=== PATIENT | female | born 1965 | race Caucasian/White ===

== ENCOUNTER 2019-03-11 07:08 | Emergency (ER) | payer OTHER ==
[2019-03-11] MEDS ORDERED: NA CHLORIDE 0.9% 1,000 ML ONE (07:37)
[2019-03-11] MEDS ORDERED: MEPERIDINE HCL 25 MG/0.5 ML ONE (07:37)
[2019-03-11] MEDS ORDERED: METOCLOPRAMIDE 10 MG/2mL INJ ONE (07:37)
--- NOTE | 2019-03-11 08:59 | RAD REPORT ---
EXAM DESCRIPTION: Maria Antonia oT (2 Views)03/11/2019 8:03 am CLINICAL HISTORY: Cough COMPARISON: 2017 FINDINGS: The lungs appear clear of acute infiltrate. The heart is normal size IMPRESSION: No acute abnormalities displayed
[2019-03-11] MEDS ORDERED: MORPHINE 4 MG/ML SYR ONE (09:26)
--- NOTE | 2019-03-11 09:28 | ER ---
Nurse's Notes [facility] Name: Anna Diamond Age: 53 yrs Sex: Female : 1965 Arrival Date: 03/11/2019 Time: 07:11 Bed 6 Private MD: Finesse Becerra Diagnosis: Acute upper respiratory infection, unspecified Presentation: 03/11 07:17 Presenting complaint: Patient states: got the flu on Saturday, has been taking Tamiflu iw since Saturday , ears hurt and jaw hurts and vomiting this morning, also back is hurting all over. Transition of care: patient was not received from another setting of care. Onset of symptoms was March 09, 2019. Risk Assessment: Do you want to hurt yourself or someone else? Patient reports no desire to harm self or others. Initial Sepsis Screen: Does the patient meet any 2 criteria? No. Patient's initial sepsis screen is negative. Does the patient have a suspected source of infection? No. Patient's initial sepsis screen is negative. Care prior to arrival:. 07:17 Method Of Arrival: Ambulatory iw 07:17 Acuity: ELLIS 3 iw RECEPTION INTERVIEWER: 07:20 LMP N/A - Hysterectomy iw Historical: - Allergies: 07:19 Levaquin; iw - PMHx: 07:19 Migraines; iw - PSHx: 07:19 Tonsillectomy; Hysterectomy; Cholecystectomy; iw - Immunization history:: Adult Immunizations. - Social history:: Smoking status: Patient denies any tobacco usage or history of. - Ebola Screening: : Patient negative for fever greater than or equal to 101.5 degrees Fahrenheit, and additional compatible Ebola Virus Disease symptoms Patient denies exposure to infectious person Patient denies travel to an Ebola-affected area in the 21 days before illness onset No symptoms or risks identified at this time. - Family history:: not pertinent. - Hospitalizations: : No recent hospitalization is reported. Screenin:27 Abuse screen: Denies threats or abuse. Denies injuries from another. Nutritional sv screening: No deficits noted. Tuberculosis screening: No symptoms or risk factors identified. Fall Risk None identified. Assessment: 07:45 General: Appears in no apparent distress. uncomfortable, slender, well developed, sv Behavior is cooperative, appropriate for age. Pain: Complains of pain in left cheek, left mandible and left ear Pain currently is 7 out of 10 on a pain scale. Pain began 2-3 days ago. Is continuous, Alleviated by nothing. Neuro: Level of Consciousness is awake, alert, obeys commands, Oriented to person, place, time, situation, Gait is steady, Speech is normal. Respiratory: Respiratory effort is even, unlabored, Respiratory pattern is regular, symmetrical. EENT: Reports pain in left ear and right ear. Derm: Skin is pink, warm \T\ dry. Musculoskeletal: Range of motion: intact in all extremities. 09:20 Reassessment: Patient appears in no apparent distress at this time. No changes from sv previously documented assessment. Patient and/or family updated on plan of care and expected duration. Pain level reassessed. Patient is alert, oriented x 3, equal unlabored respirations, skin warm/dry/pink. Reports her headache came back. 10:19 Reassessment: Dr Linton at the bedside speaking with the pt. sv 10:33 Reassessment: Patient appears in no apparent distress at this time. No changes from sv previously documented assessment. Patient and/or family updated on plan of care and expected duration. Pain level reassessed. Patient is alert, oriented x 3, equal unlabored respirations, skin warm/dry/pink. 10:54 Reassessment: Patient appears in no apparent distress at this time. No changes from sv previously documented assessment. Patient and/or family updated on plan of care and expected duration. Pain level reassessed. Patient is alert, oriented x 3, equal unlabored respirations, skin warm/dry/pink. Vital Signs: 07:20 BP 112 / 68; Pulse 83; Resp 16; Temp 100.0(TE); Pulse Ox 97% on R/A; Weight 61.23 kg; iw Height 5 ft. 4 in. (162.56 cm); Pain 7/10; 08:19 Pain 4/10; sv 08:20 BP 117 / 7; Pulse 77; Resp 16; Pulse Ox 99% ; sv 09:20 BP 115 / 71; Pulse 73; Resp 16; Pulse Ox 97% ; sv 10:19 BP 112 / 69; Pulse 79; Resp 16; Pulse Ox 100% ; sv 07:20 Body Mass Index 23.17 (61.23 kg, 162.56 cm) iw ED Course: 07:11 Patient arrived in ED. rg4 07:11 Finesse Becerra MD is Private Physician. rg4 07:19 Triage completed. iw 07:22 Shine Linton MD is Attending Physician. rn 07:26 Candelaria Adams RN is Primary Nurse. sv 07:27 Arm band placed on. sv 07:27 Patient has correct armband on for positive identification. Bed in low position. Call sv light in reach. Door closed. Head of bed elevated. 07:30 ED physician to see patient. sv 07:47 Inserted saline lock: 22 gauge in right hand, using aseptic technique. Blood collected. sv Flushed right hand with 5 ml normal saline. 08:03 XRAY Chest Pa And Lat (2 Views) In Process Unspecified. EDMS 08:10 Awaiting radiology results. sv 08:15 Throat Culture Sent. sv 10:54 No provider procedures requiring assistance completed. IV discontinued, intact, sv bleeding controlled, No redness/swelling at site. Pressure dressing applied. Administered Medications: 07:48 Drug: NS 0.9% 1000 ml Route: IV; Rate: 1000 ml; Site: right hand; sv 09:30 Follow up: Response: No adverse reaction; IV Status: Completed infusion; IV Intake: sv 1000ml 07:48 Drug: Demerol 25 mg {Note: rass2.} Route: IVP; Site: right hand; sv 08:19 Follow up: Pain 4/10 Adult; Response: No adverse reaction; RASS: Alert and Calm (0) sv 07:50 Drug: Reglan 10 mg Route: IVP; Site: right hand; sv 08:20 Follow up: Response: No adverse reaction sv 09:20 Drug: morphine 4 mg Route: IVP; Site: right hand; aa5 10:01 Follow up: Response: No adverse reaction; RASS: Alert and Calm (0); Pt reports that it sv helped for a little bit and now the headache is back. 10:33 Drug: Decadron - Dexamethasone 10 mg Route: IVP; Site: right hand; sv 10:53 Follow up: Response: No adverse reaction sv 10:52 Drug: [place] 10 mg-325 mg 1 tabs Route: PO; sv 10:54 Follow up: Response: Medication administered at discharge.; RASS: Alert and Calm (0) sv Intake: 09:30 IV: 1000ml; Total: 1000ml. sv Outcome: 09:26 Discharge ordered by . rn 10:54 Discharged to home ambulatory, with family. sv 10:54 Condition: stable 10:54 Discharge instructions given to patient, Instructed on discharge instructions, follow up and referral plans. no drinking with medication, no driving heavy equipment, medication usage, Demonstrated understanding of instructions, follow-up care, medications, Prescriptions given X 1. 10:55 Patient left the ED. sv Signatures: Dispatcher [employer] EDCandelaria Lord RN RN Xin March RN RN Shine Linton MD MD rn Calderon, Audri, RN RN [id number] Adelina Garcia rg4 Corrections: (The following items were deleted from the chart) 07:20 07:17 Acuity: ELLIS 4 [facility] 07:52 07:48 Demerol 25 mg IVP in right hand sv sv
--- NOTE | 2019-03-11 09:28 | EDPHYS ---
Physician Documentation [facility] Name: Anna Diamond Age: 53 yrs Sex: Female : 1965 Arrival Date: 03/11/2019 Time: 07:11 Bed 6 Private MD: Finesse Becerra ED Physician Shine Linton HPI: 03/11 07:32 This 53 yrs old Female presents to ER via Ambulatory with complaints of Flu rn Symptoms. 07:32 The patient or guardian reports cough. Onset: The symptoms/episode began/occurred 4 rn day(s) ago. Severity of symptoms: At their worst the symptoms were moderate, in the emergency department the symptoms are unchanged. Modifying factors: The symptoms are alleviated by nothing, the symptoms are aggravated by nothing. The patient has not experienced similar symptoms in the past. The patient has been recently seen by a physician:. Reports began with flu like symptoms on Saturday, had flu like symptoms, and friend of his had flu-like symptoms, so they were both treated for flu with tamiflu. She is on day 4 of tamiflu but now having shooting pain in ears, jaw pain, fatigue, headache, muscle aches. Reports cough and doesn't normally get cough with flu. Reports cough has improved and now dry. No hemoptysis. No travel to [place] recently. . STRIKER OUT: 07:20 LMP N/A - Hysterectomy iw Historical: - Allergies: 07:19 Levaquin; iw - PMHx: 07:19 Migraines; iw - PSHx: 07:19 Tonsillectomy; Hysterectomy; Cholecystectomy; iw - Immunization history:: Adult Immunizations. - Social history:: Smoking status: Patient denies any tobacco usage or history of. - Ebola Screening: : Patient negative for fever greater than or equal to 101.5 degrees Fahrenheit, and additional compatible Ebola Virus Disease symptoms Patient denies exposure to infectious person Patient denies travel to an Ebola-affected area in the 21 days before illness onset No symptoms or risks identified at this time. - Family history:: not pertinent. - Hospitalizations: : No recent hospitalization is reported. ROS: 07:32 Constitutional: + fever and chills Eyes: Negative for injury, pain, redness, and corporate attorney, ENT: + bilateral ear pain and jaw pain Neck: Negative for injury, pain, and swelling, Cardiovascular: Negative for chest pain, palpitations, and edema, Respiratory: + cough Abdomen/GI: Negative for abdominal pain, nausea, vomiting, diarrhea, and constipation, MS/Extremity: Negative for injury and deformity, Skin: Negative for injury, rash, and discoloration, Neuro: Negative for numbness, tingling, and seizure. Exam: 07:36 Constitutional: This is a well developed, well nourished patient who is awake, alert, rn laying in bed Head/Face: Normocephalic, atraumatic. Eyes: Pupils equal round and reactive to light, extra-ocular motions intact. Lids and lashes normal. Conjunctiva and sclera are non-icteric and not injected. Cornea within normal limits. Periorbital areas with no swelling, redness, or edema. ENT: MMM, no swelling or stridor Neck: Trachea midline, no thyromegaly or masses palpated, and no cervical lymphadenopathy. Supple, full range of motion without nuchal rigidity, or vertebral point tenderness. No Meningismus. Cardiovascular: Regular rate and rhythm. No pulse deficits. Respiratory: No increased work of breathing, no retractions or nasal flaring. Abdomen/GI: soft, non-tender Skin: Warm, dry MS/ Extremity: Pulses equal, no cyanosis Neuro: Awake and alert, GCS 15, oriented to person, place, time, and situation. Cranial nerves II-XII grossly intact. Motor strength 5/5 in all extremities. Sensory grossly intact. Vital Signs: 07:20 BP 112 / 68; Pulse 83; Resp 16; Temp 100.0(TE); Pulse Ox 97% on R/A; Weight 61.23 kg; iw Height 5 ft. 4 in. (162.56 cm); Pain 7/10; 08:19 Pain 4/10; sv 08:20 BP 117 / 7; Pulse 77; Resp 16; Pulse Ox 99% ; sv 09:20 BP 115 / 71; Pulse 73; Resp 16; Pulse Ox 97% ; sv 10:19 BP 112 / 69; Pulse 79; Resp 16; Pulse Ox 100% ; sv 07:20 Body Mass Index 23.17 (61.23 kg, 162.56 cm) iw MDM: 07:22 Patient medically screened. rn 09:24 Differential Diagnosis: Bronchitis Influenza Upper Respiratory Infection Sinusitis rn Viral Syndrome Pneumonia. Data reviewed: vital signs, nurses notes, lab test result(s), radiologic studies, plain films, and as a result, I will discharge patient. Counseling: I had a detailed discussion with the patient and/or guardian regarding: the historical points, exam findings, and any diagnostic results supporting the discharge/admit diagnosis, lab results, radiology results, the need for outpatient follow up, to return to the emergency department if symptoms worsen or persist or if there are any questions or concerns that arise at home. Response to treatment: the patient's symptoms have mildly improved after treatment, and as a result, I will discharge patient. Special discussion: I discussed with the patient/guardian in detail that at this point there is no indication for admission to the hospital. It is understood, however, that if the symptoms persist or worsen the patient needs to return immediately for re-evaluation. ED course: CXR neg for acute abnormality, no meningeal signs, pain improved with meds, but returned, most likely viral syndrome. Neg flu and strep. No urinary symptoms. Return precautions given and understood. . 03/11 07:36 Order name: Flu; Complete Time: 08:50 rn 03/11 07:38 Order name: Strep; Complete Time: 08:50 rn 03/11 07:32 Order name: XRAY Chest Pa And Lat (2 Views); Complete Time: 09:05 rn 03/11 08:14 Order name: Throat Culture EDNH 03/11 07:32 Order name: IV Start; Complete Time: 07:51 rn Administered Medications: 07:48 Drug: NS 0.9% 1000 ml Route: IV; Rate: 1000 ml; Site: right hand; sv 09:30 Follow up: Response: No adverse reaction; IV Status: Completed infusion; IV Intake: sv 1000ml 07:48 Drug: Demerol 25 mg {Note: rass2.} Route: IVP; Site: right hand; sv 08:19 Follow up: Pain 4/10 Adult; Response: No adverse reaction; RASS: Alert and Calm (0) sv 07:50 Drug: Reglan 10 mg Route: IVP; Site: right hand; sv 08:20 Follow up: Response: No adverse reaction sv 09:20 Drug: morphine 4 mg Route: IVP; Site: right hand; aa5 10:01 Follow up: Response: No adverse reaction; RASS: Alert and Calm (0); Pt reports that it sv helped for a little bit and now the headache is back. 10:33 Drug: Decadron - Dexamethasone 10 mg Route: IVP; Site: right hand; sv 10:53 Follow up: Response: No adverse reaction sv 10:52 Drug: [place] 10 mg-325 mg 1 tabs Route: PO; sv 10:54 Follow up: Response: Medication administered at discharge.; RASS: Alert and Calm (0) sv Disposition: 03/11/19 09:26 Discharged to Home. Impression: Acute upper respiratory infection, unspecified. - Condition is Stable. - Discharge Instructions: Upper Respiratory Infection, Adult, Viral Respiratory Infection. - Prescriptions for Tylenol- Codeine #3 300-30 mg Oral Tablet - take 2 tablets by ORAL route every 6 hours As needed; 20 tablet. - Medication Reconciliation Form, Thank You Letter, Antibiotic Education, Prescription Opioid Use form. - Follow up: Private Physician; When: As needed; Reason: Recheck today's complaints, Re-evaluation by your physician. - Problem is new. - Symptoms have improved. Signatures: Dispatcher [employer] EDCandelaria Lord RN RN sv Williams, Irene, RN RN iw Nieto, Roman, MD MD rn Calderon, Audri, RN RN aa5 Corrections: (The following items were deleted from the chart) 07:37 07:32 Constitutional: + fever and chills Eyes: Negative for injury, pain, redness, and corporate attorney, ENT: + bilateral ear pain and jaw pain Neck: Negative for injury, pain, and swelling, Cardiovascular: Negative for chest pain, palpitations, and edema, Respiratory: + cough Abdomen/GI: Negative for abdominal pain, nausea, vomiting, diarrhea, and constipation, MS/Extremity: Negative for injury and deformity, Skin: Negative for injury, rash, and discoloration, Neuro: Negative for headache, weakness, numbness, tingling, and seizure, rn 07:39 07:36 Constitutional: This is a well developed, well nourished patient who is awake, rn alert, laying in bed Head/Face: Normocephalic, atraumatic. Eyes: Pupils equal round and reactive to light, extra-ocular motions intact. Lids and lashes normal. Conjunctiva and sclera are non-icteric and not injected. Cornea within normal limits. Periorbital areas with no swelling, redness, or edema. ENT: MMM, no swelling or stridor rn 10:55 09:26 03/11/2019 09:26 Discharged to Home. Impression: Acute upper respiratory sv infection, unspecified. Condition is Stable. Forms are Medication Reconciliation Form, Thank You Letter, Antibiotic Education, Prescription Opioid Use. Follow up: Private Physician; When: As needed; Reason: Recheck today's complaints, Re-evaluation by your physician. Problem is new. Symptoms have improved. rn
[2019-03-11] MEDS ORDERED: HYDROCODONE/APAP 10/325 TAB ONE (10:32)
[2019-03-11] MEDS ORDERED: dexAMETHasone 10 MG/ML VIAL ONE (10:32)
[2019-03-11 19:00] VITALS: TEMP 100
[2019-03-11 19:07] VITALS: BP 112/69; O2SAT 100
== END 2019-03-11 10:55 | disposition home or self-care (01) ==
LOC: ER 07:08
DX: J06.9 Acute upper respiratory infection, unspecified (principal); Z88.1 Allergy status to other antibiotic agents
CPT/HCPCS: 96361; 87070; 87081; 87804 ×2; 71046; 96375; 96374; 99284; J2765; J1100; J2175; J7030

== ENCOUNTER 2022-10-18 12:53 | Emergency (ER) | payer OTHER ==
--- OUTSIDE RECORDS SUMMARY | 2022-10-18 12:55 | XMS REPORT | Continuity of Care Document ---
:1965 Author Organization [facility] t Address [address] [place] [address] [address] [place] [address] Care Team Providers Name Role Phone NADJA ORANTES Primary Care Physician Unavailable JANICE IRAHETA Attending Clinician Unavailable MILAN PEOPLES Attending Clinician Unavailable Bela BALTAZAR, Tsering Ornelas Attending Clinician Chirag BALTAZAR, Gretta Bates Attending Clinician [place] Attending Clinician DENISHA VERDIN Attending Clinician Unavailable Payers Payer Name Policy Type Policy Number Effective Date Expiration Date S kvng [employer] CHOICE POS [id number] 2009 00:00:00 II Problems Condition Condition Condition Status Onset Resolution Last Treating Co mments Source Name Details Category Date Date Treatment Clinician Date Vestibular Vestibular Disease Active M ethodi schwannoma schwannoma 10-14 [facility] 00:00: Hospita 00 l Contusion Contusion Disease Active [facility] of bone of bone 04-12 Health 00:00: 00 Sprain of Sprain of Disease Active 2020-02 UT calcaneofi calcaneofi 2 He alth bular bular 00:00: ligament ligament 00 of right of right ankle ankle Sprain of Sprain of Disease Active 2020-02 UT anterior anterior 03-21 Health talofibula talofibula 00:00: r ligament r ligament 00 of right of right ankle ankle Right Right Disease Active 2020-02 UT ankle pain ankle pain 03-19 He alth 00:00: 00 Moderate Moderate Disease Active 2020-02 Last [facility] right right 03-19 Assessmen Health ankle ankle 00:00: t & Plan: sprain sprain 00 Formattin g of this note might be different from the original. Placed in a tall boot, recommend four-poin t walker, crutches if she has some. May take ibuprofen /Tylenol. Recommend Rest, Ice, Compressi on, Elevation . Follow-up in 2 weeks as needed. Allergies, Adverse Reactions, Alerts Allergy Allergy Status Severity Reaction(s) Onset Inactive Treating Comm ents Source Name Type Date Date Clinician Tetracyc Propensi Active Rash Method i line ty to 09-19 st adverse 00:00: Hospita reaction 00 l s to drug TETRACYC DRUG Active Rash [facility] LINE INGREDI 06-16 ity of 00:00: [place] [id number] [facility] Tetracyc Allergy Active Rash Heart [facility] line to 06-16 burn Health substanc 00:00: e 00 Social History Social Habit Start Date Stop Date Quantity Comments Source History of tobacco Current smoker [facility] Alcohol Std Drinks History [facility] Alcohol Binge History [facility] Alcohol Comment Exposure to Not sure [facility] SARS-CoV-2 (event) Alcohol intake 2022-05-17 2022-05-17 Ex-drinker [facility] 00:00:00 00:00:00 (finding) Hospital History of Social 2022-05-17 2022-05-[address] function 00:00:00 00:00:00 Hospital Tobacco use and 2021-09-19 2021-09-19 Smokeless [facility] exposure 00:00:00 00:00:00 tobacco non-user Hospital History [facility] 2021-01-17 2021-01-17 1 [place] [facility] Alcohol Frequency 00:00:00 00:00:00 Sex [birth year] [facility] 00:00:00 00:00:00 Hospital Smoking Status Start Date Stop Date Source Ex-smoker 2021-09-19 00:00:00 2021-09-19 00:00:00 [facility] Never smoked tobacco [facility] Medications Ordered Filled Start Stop Current Ordering Indication Dosage Frequency Signature Comments Components Source Medication Medication Date Date Medication? Clinician (SIG) Name Name Jono Yes TAKE 1 Meth rigo n (ZOMIG) 5 7-[address] [facility] tablet 00:00: (5MG) BY Hosp serina 00 MOUTH l ONCE(ONSET OF HEADACHE) MAY REPEAT AFTER 2HRS MAX 10MG/24HRS NEEDED Vyvanse 50 Yes 50mg QD Take 50 mg M ethodi mg capsule 7-[address] 00:00: every Hospita 00 morning. l Trintellix Yes 20mg QD Take 20 mg M ethodi 20 mg 6-[address] tablet 00:00: daily. Hospita 00 l lisdexamfet 2020-02 Yes 1{capsu QD 1 capsule UT amine 1-30 le} 1 (one) [facility] ([facility]) 08:48: time each 30 MG 07 day. capsule Vortioxetin 2020-02 Yes QD 1 (one) [facility] e [facility] 1-30 time each Health (Trintellix 08:48: day. ) 10 MG 07 tablet tablet lisdexamfet 2020-02 Yes 1{capsu QD 1 capsule UT amine 1-30 le} 1 (one) [facility] ([facility]) 08:48: time each 30 MG 07 day. capsule Vortioxetin 2020- Yes QD 1 (one) [facility] e [facility] 1-30 time each Health (Trintellix 08:48: day. ) 10 MG 07 tablet tablet lisdexamfet 2020- Yes 1{capsu QD 1 capsule UT amine 1-30 le} 1 (one) [facility] ([facility]) 08:48: time each 30 MG 07 day. capsule Vortioxetin 2020- Yes QD 1 (one) [facility] e [facility] 1-30 time each Health (Trintellix 08:48: day. ) 10 MG 07 tablet tablet lisdexamfet 2020- Yes 1{capsu QD 1 capsule UT amine 1-30 le} 1 (one) [facility] ([facility]) 08:48: time each 30 MG 07 day. capsule Vortioxetin 2021-1 Yes QD 1 (one) [facility] e [facility] 1-30 time each Health (Trintellix 08:48: day. ) 10 MG 07 tablet tablet ergocalcife 2020-02 Yes UT rol 1-10 Health (Vitamin 00:00: D2) 1.25 MG 00 (87609 UT) capsule ergocalcife 2020-02 Yes UT rol 1-10 Health (Vitamin 00:00: D2) 1.25 MG 00 (67043 UT) capsule ergocalcife 2020-02 Yes UT rol 1-10 Health (Vitamin 00:00: D2) 1.25 MG 00 (11449 UT) capsule ergocalcife 2020-02 Yes UT rol 1-10 Health (Vitamin 00:00: D2) 1.25 MG 00 (23932 UT) capsule ZOLMitripta Yes Zomig 5 mg UT n (Zomig) 5 4-29 tablet 1 Heal th MG tablet 00:00: tablet as 00 needed by oral route. ZOLMitripta Yes Zomig 5 mg UT n (Zomig) 5 4-29 tablet 1 Heal th MG tablet 00:00: tablet as 00 needed by oral route. ZOLMitripta Yes Zomig 5 mg UT n (Zomig) 5 4-29 tablet 1 Heal th MG tablet 00:00: tablet as 00 needed by oral route. ZOLMitripta Yes Zomig 5 mg UT n (Zomig) 5 4-29 tablet 1 Heal th MG tablet 00:00: tablet as 00 needed by oral route. Vital Signs Vital Name Observation Time Observation Value Comments Source Body height 2022-05-17 19:50:00 162.6 cm [facility] Body weight 2022-05-17 19:50:00 57.6 kg [facility] BMI 2022-05-17 19:50:00 21.80 kg/m2 [facility] Procedures Procedure Date / Time Performed Performing Clinician Sourc e XR FINGER 2+ VW LEFT 2022-05-17 20:08:30 [facility] XR FINGER 2+ VW RIGHT 2022-05-17 20:08:23 [facility] Plan of Care Planned Activity Planned Date Details Comments Source Future Scheduled 2022-10-16 Screening [facility] Test 17:23:16 malignant neoplasm of colon (procedure) [code = 196380157] Future Scheduled 2022-10-16 [facility] Test 17:23:16 malignant neoplasm of colon (procedure) [code = 987171053] Future Scheduled 2022-10-16 [facility] Test 17:23:16 malignant neoplasm of colon (procedure) [code = 927129010] Future Scheduled 2022-10-16 COVID-19 VACCINE [facility] Test 17:23:16 (#1) [code = COVID-19 VACCINE (#1)] Future Scheduled 2022-10-16 Hepatitis C [facility] Test 17:23:16 screening (procedure) [code = 482572792] Future Scheduled 2022-10-16 [facility] Test 17:23:16 malignant neoplasm of cervix (procedure) [code = 545321042] Future Scheduled 2022-10-16 BREAST CANCER [facility] Test 17:23:16 SCREENING [code = BREAST CANCER SCREENING] Future Scheduled 2022-10-16 [facility] Test 17:23:16 malignant neoplasm of colon (procedure) [code = 535191023] Future Scheduled 2022-10-16 [facility] Test 17:23:16 malignant neoplasm of colon (procedure) [code = 154171574] Future Scheduled 2022-10-16 SHINGLES VACCINES [facility] Test 17:23:16 (1 of 2) [code = SHINGLES VACCINES (1 of 2)] Future Scheduled 2022-10-16 INFLUENZA VACCINE [facility] Test 17:23:16 (#1) [code = INFLUENZA VACCINE (#1)] Encounters Start End Encounter Admission Attending Care Care Encounter Source Date/Time Date/Time Type Type Clinicians Facility Department ID 2021-04-12 Outpatient [facility] [id number] [place] 13:36:43 [facility] 2021-03-[address] [facility] [id number] [place] 13:58:12 [facility] 2021-02-08 Outpatient [facility] [id number] [place] 12:23:37 [facility] 2021-01-18 Outpatient [facility] [id number] [place] 11:46:56 [facility] 2021-01-16 Outpatient [facility] [id number] [place] 15:15:39 [facility] 2021-01-16 Outpatient GITA [facility] [id number] [place] 09:30:09 [facility] 2021-01-16 Outpatient RAJIV, [facility] [id number] [place] 09:20:37 [facility] 2022-05-17 2022-05-17 Office Bela, 1.2.840.1 [id number] Methodi 15:00:00 17:04:09 Visit [place]ser[place] 40219.1.[address] [place] 3.430.2.7 Hospit a .3.936153 l .8 2022-05-17 2022-05-17 Outpatient BELA, [facility] [id number] [place] 00:00:00 00:00:00 TSERING 054 Method i 2022-05-17 2022-05-17 Outpatient BELA, [facility] [id number] [place] 00:00:00 00:00:00 TSERING 176 Method i 2022-05-17 2022-05-17 Outpatient BELA, [facility] [id number] [place] 00:00:00 00:00:00 TSERING 187 Method i 2022-05-16 2022-05-16 Travel 1.2.840.1 1.2.725.940 [id number] Methodi 00:00:00 00:00:[address] 3.430.2.7 0.2.7.3.698 Ho spita .3.613375 084.8 l .8 2022-04-09 2022-04-09 Travel 1.2.840.1 1.2.516.707 [id number] [facility] 00:00:00 00:00:[address] 3.430.2.7 0.2.7.3.698 Ho spita .3.300708 084.8 l .8 2021-11-23 2021-11-23 Office Chirag, 1.2.840.1 [id number] Methodi 16:00:00 17:07:26 Visit Gretta Bates 66129.1.1 350 s t 3.430.2.7 Hospit a .3.440065 l .8 2021-11-23 2021-11-23 Procedure 1.2.840.1 [id number] 2099 [id number] [facility] 14:00:00 16:59:[address] 3.430.2.7 Hospit a .3.937392 l .8 2021-11-23 2021-11-23 Procedure Arevalo, 1.2.840.1 [id number] 2099 [id number] [facility] 13:00:00 13:48:30 visit [place] [address]29.1.[address] 3.430.2.7 Hospit a .3.343262 l .8 2021-11-23 2021-11-23 Outpatient BOWIE, [facility] [id number] [place] [address] 00:00:00 00:00:00 SALIN[place] [address] 2021-11-23 2021-11-23 Outpatient [facility] [id number] [place] [address] 00:00:00 00:00:[address] 2021-11-23 2021-11-[address] 00:00:00 00:00:00 GRETTA Prieto [facility] 2021-11-23 2021-11-23 Travel 1.2.840.1 1.2.588.365 [id number] Methodi 00:00:00 00:00:[address] 3.430.2.7 0.2.7.3.698 Ho spita .3.368806 084.8 l .8 2021-10-31 2021-10-31 [facility], 1.2.840.1 [id number] Methodi 14:24:40 23:59:00 Encounter Gretta Bates 26507.1.[address] 3.430.2.7 Hospit a .3.976517 l .8 2021-10-31 2021-10-31 Outpatient VRABEC, [facility] [id number] [address] [place] [address] 00:00:00 00:00:00 GRETTA [address] 2021-10-31 2021-10-31 Orders Vrabec, 1.2.840.1 [id number] Methodi 00:00:00 00:00:00 Only Gretta العلي. 00486.1.1 91Chiara s t 3.430.2.7 Hospit a .3.981233 l .8 2021-10-13 2021-10-13 Outpatient VRABEC, [facility] [id number] [place] 00:00:00 00:00:00 GRETTA 774 Method i 2021-10-09 2021-10-09 Outpatient VRABEC, [facility] [id number] [place] 00:00:00 00:00:00 GRETTA 520 Method i 2021-09-19 2021-09-19 Outpatient [facility] [id number] [place] 00:00:00 00:00:00 229 Method i 2021-09-19 2021-09-19 Outpatient VRABEC, [facility] [id number] [place] 00:00:00 00:00:00 GRETTA 230 Method i 2021-04-12 2021-04-12 Office [facility] 1.2.840.114 [id number] [place] 13:00:00 13:30:47 Visit Janice [place] [facility].13.58 [facility] 9.2.7.2.686 [address] 4 [id number] [id number] 2021-03-27 2021-03-27 [facility] 1.2.840.114 [id number] [place] 13:30:00 13:58:[facility] 9.2.7.2.686 [address] [id number] [id number] 2021-03-01 2021-03-01 [facility] 1.2.840.114 [id number] [place] 11:00:00 12:17:52 Visit Janice [place] 350.1.13.58 [facility] 9.2.7.2.686 [address] 8 [id number] [id number] 2021-02-08 2021-02-08 Office BERRY Iraheta [facility] 1.2.840.114 [id number] [place] 11:30:00 12:30:26 [facility] 350.1.13.58 H [facility] 9.2.7.2.686 [address] 3 [id number] 2021-01-18 2021-01-18 Outpatient Frandy VERDIN [facility] [id number] 2Q-20 Univers 16:00:00 16:00:00 DENISHA [id number] [facility] Results This patient has no known results.
[2022-10-18] MEDS ORDERED: NA CHLORIDE 0.9% 1,000 ML ONE (14:21)
[2022-10-18] MEDS ORDERED: KETOROLAC 30 MG/ML INJ ONE (14:21)
[2022-10-18] MEDS ORDERED: ONDANSETRON 4 MG/2 ML VIAL ONE (14:21)
[2022-10-18 14:26] LABS: Absolute Lymphocytes (CBC) 1.1 K/uL (0.7-4.9); Hematocrit 38.1 % (36.0-45.0); Lymphocytes % 16.8 % (15.3-44.8); MCV 90.2 fL (80-100); MPV 7.1 fL (7.6-11.3); Platelets 227 thou/uL (152-406); RBC Red Blood Cell Count 4.22 M/uL (3.86-4.86)
[2022-10-18 14:52] LABS: Albumin 4.4 g/dL (3.4-5.0); Bilirubin Total 0.3 mg/dL (0.2-1.0); Potassium 3.4 mEq/L (3.5-5.1); Protein, Total 7.6 g/dL (6.4-8.2)
--- NOTE | 2022-10-18 16:51 | RAD REPORT ---
EXAM DESCRIPTION: CT - Abdomen Pelvis W Contrast - 10/18/2022 3:20 pm CLINICAL HISTORY: ABD PAIN COMPARISON: Abdomen Pelvis W Contrast dated 05/17/2016 TECHNIQUE: Thin cut axial CT imaging of the abdomen and pelvis was performed following intravenous a dministration of 100 mL Isovue 300. Multiplanar reformats were generated and reviewed. All CT scans are performed using dose optimization technique as appropriate and may include automated exposure control or mA/KV adjustment according to patient size. FINDINGS: No suspicious findings in the lung bases. The liver again shows innumerable small hypoattenuating well-circumscribed lesions, suggestive of cys ts, although they are not well characterized on this single-phase exam. The pattern however appear st able. Adrenal glands, spleen, and pancreas show no suspicious findings. Gallbladder was surgically re moved. No intra or extrahepatic biliary ductal dilation. Symmetric renal function is seen with no hydronephrosis or suspicious renal mass. No dilated bowel loops or bowel wall thickening. Appendix is unremarkable. Hbym-ex-moxummnf stool bur den along the proximal colon. No free air, free fluid or inflammatory stranding. No hernia, mass or b ulky lymphadenopathy. The urinary bladder is without significant finding. Status post hysterectomy. No suspicious bony findings. IMPRESSION: No acute intra-abdominal process. Wleu-yp-iahyrdir stool burden along the proximal colon. Stable innumerable hepatic hypoattenuating lesions as above.
--- NOTE | 2022-10-18 17:57 | EDPHYS ---
Physician Documentation [facility] Name: Anna Diamond Age: 57 yrs Sex: Female : 1965 Arrival Date: 10/18/2022 Time: 12:53 Bed 6 Private MD: ED Physician Michael Vargas HPI: 10/18 15:22 This 57 yrs old Female presents to ER via Ambulatory with complaints of ms3 Nausea/Vomiting/Diarrhea, Abdominal Pain. 15:22 57-year-old female with past medical history of migraines, colitis presents for ms3 vomiting, nausea, diarrhea, abdominal pain, chills for 1 week. Patient states his symptoms have become worse. Patient denies alleviating or inciting factors. Historical: - Allergies: 13:12 Levaquin; ap3 13:12 Tetracycline; ap3 - Home Meds: 13:12 Cipro Oral [Active]; metronidazole 250 mg Oral tablet [Active]; ap3 - PMHx: 13:12 Migraines; ap3 - Immunization history:: Client reports having NOT received the Covid vaccine. - Social history:: Smoking status: Patient denies any tobacco usage or history of. ROS: 15:22 Constitutional: Negative for fever, and chills. Neck: Negative for injury, pain, and ms3 swelling, Cardiovascular: Negative for chest pain, and palpitations. Respiratory: Negative for shortness of breath, cough, wheezing, and pleuritic chest pain. 15:22 MS/Extremity: Negative for injury and deformity, Skin: Negative for injury, rash, and discoloration. 15:22 Abdomen/GI: Positive for abdominal pain, nausea, vomiting, and diarrhea. 15:22 All other systems are negative. Exam: 15:22 Constitutional: This is a well developed, well nourished patient who is awake, alert, ms3 and in no acute distress. Head/Face: Normocephalic, atraumatic. ENT: Nares patent. No nasal discharge, no septal abnormalities noted. Tympanic membranes are normal and external auditory canals are clear. Oropharynx with no redness, swelling, or masses, exudates, or evidence of obstruction, uvula midline. Mucous membranes moist. Neck: Trachea midline, no cervical lymphadenopathy. Supple, full range of motion without nuchal rigidity, or vertebral point tenderness. No Meningismus. Chest/axilla: Normal chest wall appearance and motion. Nontender with no deformity. Cardiovascular: Regular rate and rhythm with a normal S1 and S2. No gallops, murmurs, or rubs. Normal PMI, no JVD. No pulse deficits. Respiratory: Lungs have equal breath sounds bilaterally, clear to auscultation and percussion. No rales, rhonchi or wheezes noted. No increased work of breathing, no retractions or nasal flaring. Abdomen/GI: Soft, non-tender, with normal bowel sounds. No distension or tympany. No guarding or rebound. No evidence of tenderness throughout. Skin: Warm, dry with normal turgor. Normal color with no rashes, no lesions, and no evidence of cellulitis. MS/ Extremity: Pulses equal, no cyanosis. Neurovascular intact. Full, normal range of motion. Vital Signs: 13:09 BP 130 / 85; Pulse 84; Resp 17; Temp 97.9; Pulse Ox 100% ; Weight 58.97 kg; Height 5 ap3 ft. 4 in. ; Pain 3/10; 13:09 Body Mass Index 22.31 (58.97 kg, 162.56 cm) ap3 13:09 Pain Scale: Adult ap3 MDM: 13:22 Patient medically screened. ms3 15:22 Differential diagnosis: Nonspecific abd pain, gastritis, pancreatitis, viral ms3 gastroenteritis, gastroenteritis. 21:43 Data reviewed: vital signs, nurses notes, lab test result(s), radiologic studies, CT ms3 scan. Consideration of Admission/Observation Escalation of care including admission/observation considered. Patient declines observation. I considered the following discharge prescriptions or medication management in the emergency department Medications were administered in the Emergency Department. See MAR. Historians other than the Patient: Spouse/Significant Other: Patient's . Counseling: I had a detailed discussion with the patient and/or guardian regarding the historical points, exam findings, and any diagnostic results supporting the discharge/admit diagnosis, lab results, radiology results, the need for outpatient follow up, to return to the emergency department if symptoms worsen or persist or if there are any questions or concerns that arise at home. Refusal of service: The patient/guardian displays adequate decision making capability and despite a detailed discussion of alternatives, benefits, risks, and consequences refuses:. Special discussion:. ED course: Discussed placing patient observation and patient declined. Discussed necessity for patient to follow-up with gastroenterology in 1 to 2 days. Patient understands and agrees with plan. All questions were answered. Return precautions discussed include fevers, chills, vomiting, inability to tolerate p.o., worsening pain, or any other concerns. On reevaluation patient is alert and oriented x4, in no apparent distress, nontoxic-appearing, ambulatory in the emergency department. 10/18 13:22 Order name: CBC with Diff; Complete Time: 14:52 ms3 10/18 13:22 Order name: CMP; Complete Time: 15:18 ms3 10/18 13:22 Order name: Lipase; Complete Time: 15:18 ms3 10/18 13:22 Order name: CT Abd/Pelvis - IV Contrast Only; Complete Time: 17:14 ms3 10/18 13:22 Order name: IV Saline Lock; Complete Time: 14:19 ms3 10/18 13:22 Order name: Labs collected and sent; Complete Time: 14:19 ms3 Administered Medications: 14:18 Drug: NS 0.9% IV 1000 ml Route: IV; Rate: 1 bolus; Site: left antecubital; ko1 14:18 Drug: TORadol - Ketorolac IVP 15 mg Route: IVP; Site: left antecubital; ko1 14:18 Drug: Ondansetron IVP 4 mg Route: IVP; Site: left antecubital; ko1 Disposition Summary: 10/18/22 17:56 Discharge Ordered Location: Home ms3 Condition: Stable ms3 Diagnosis - Acute pancreatitis without necrosis or infection, unspecified ms3 - Abdominal pain, unspecified ms3 Followup: ms3 - With: Parish Lamb MD - When: 2 - 3 days - Reason: Recheck today's complaints Discharge Instructions: - Discharge Summary Sheet ms3 - Abdominal Pain, Adult ms3 - Acute Pancreatitis ms3 - Pancreatitis Eating Plan ms3 Forms: - Medication Reconciliation Form ms3 - Thank You Letter ms3 - Antibiotic Education ms3 - Prescription Opioid Use ms3 - Patient Portal Instructions ms3 - Leadership Thank You Letter ms3 Signatures: Dispatcher [employer] Anna Avery RN RN ap3 Michael Vargas DO DO ms3 Lizbeth Preston RN RN ko1 Corrections: (The following items were deleted from the chart) 15:23 15:22 57-year-old female with past medical history of migraines, colitis presents for ms3 vomiting, nausea, diarrhea, abdominal pain, chills.. ms3
--- NOTE | 2022-10-18 17:57 | ER ---
Nurse's Notes [facility] Name: Anna Diamond Age: 57 yrs Sex: Female : 1965 Arrival Date: 10/18/2022 Time: 12:53 Bed 6 Private MD: Diagnosis: Acute pancreatitis without necrosis or infection, unspecified;Abdominal pain, unspecified Presentation: 10/18 13:09 Chief complaint: Patient states: she has been having intermittent abdominal pain, ap3 nausea/vomiting and diarrhea for approx one week. however the patient states the symptoms got worse. patient reports having a history of colitis. patient currently reports her pain as a 3/10 on the pain scale. Coronavirus screen: At this time, the client does not indicate any symptoms associated with coronavirus-19. Ebola Screen: No symptoms or risks identified at this time. Initial Sepsis Screen: Does the patient meet any 2 criteria? No. Patient's initial sepsis screen is negative. Does the patient have a suspected source of infection? Yes: Acute abdominal pain. Risk Assessment: Do you want to hurt yourself or someone else? Patient reports no desire to harm self or others. Onset of symptoms was October 11, 2022. 13:09 Method Of Arrival: Ambulatory ap3 13:09 Acuity: ELLIS 3 ap3 Triage Assessment: 13:13 General: Appears in no apparent distress. Behavior is calm, cooperative, appropriate ap3 for age. Pain: Complains of pain in abdomen Pain radiates to back. Neuro: Level of Consciousness is awake, alert, obeys commands, Oriented to person, place, time, situation. Cardiovascular: Patient's skin is warm and dry. Respiratory: Airway is patent Respiratory effort is even, unlabored, Respiratory pattern is regular, symmetrical. GI: Reports lower abdominal pain, upper abdominal pain, diarrhea, nausea, vomiting. Historical: - Allergies: 13:12 Levaquin; ap3 13:12 Tetracycline; ap3 - Home Meds: 13:12 Cipro Oral [Active]; metronidazole 250 mg Oral tablet [Active]; ap3 - PMHx: 13:12 Migraines; ap3 - Immunization history:: Client reports having NOT received the Covid vaccine. - Social history:: Smoking status: Patient denies any tobacco usage or history of. Screenin:14 [facility] ED Fall Risk Assessment (Adult) History of falling in the last 3 months, ap3 including since admission No falls in past 3 months (0 pts). Abuse screen: Denies threats or abuse. Nutritional screening: No deficits noted. Tuberculosis screening: No symptoms or risk factors identified. Assessment: 14:15 Neuro: No deficits noted. Cardiovascular: No deficits noted. Respiratory: No deficits ko1 noted. GI: Reports lower abdominal pain, diarrhea, nausea, vomiting. GI: Abdomen is non-distended. : No deficits noted. EENT: No deficits noted. Derm: No deficits noted. Musculoskeletal: No deficits noted. Vital Signs: 13:09 BP 130 / 85; Pulse 84; Resp 17; Temp 97.9; Pulse Ox 100% ; Weight 58.97 kg; Height 5 ap3 ft. 4 in. ; Pain 3/10; 13:09 Body Mass Index 22.31 (58.97 kg, 162.56 cm) ap3 13:09 Pain Scale: Adult ap3 ED Course: 12:54 Patient arrived in ED. rg4 13:05 Michael Vargas DO is Attending Physician. ms3 13:12 Triage completed. ap3 13:14 Arm band placed on right wrist. ap3 13:55 Patient placed in an exam room, on a stretcher. ll1 14:08 Lizbeth Preston, RN is Primary Nurse. ko1 14:15 Inserted saline lock: 22 gauge in left antecubital area, using aseptic technique. ko1 14:18 CBC with Diff Sent. ko1 14:18 CMP Sent. ko1 14:19 Lipase Sent. ko1 15:22 CT Abd/Pelvis - IV Contrast Only In Process Unspecified. EDMS 15:26 Note: unable to use IV in Left AC, new 24 diffus. placed in right forearm for CT. ls3 17:50 Patient has correct armband on for positive identification. Bed in low position. Call ko1 light in reach. Provided Education on: na. Pulse ox on. NIBP on. Door closed. Noise minimized. Lights dimmed. Pillow given. 17:50 No provider procedures requiring assistance completed. ko1 17:55 Parish Lamb MD is Referral Physician. ms3 18:02 IV discontinued, intact, bleeding controlled, No redness/swelling at site. ll1 Administered Medications: 14:18 Drug: NS 0.9% IV 1000 ml Route: IV; Rate: 1 bolus; Site: left antecubital; ko1 14:18 Drug: TORadol - Ketorolac IVP 15 mg Route: IVP; Site: left antecubital; ko1 14:18 Drug: Ondansetron IVP 4 mg Route: IVP; Site: left antecubital; ko1 Medication: 13:14 VIS not applicable for this client. ap3 Outcome: 17:56 Discharge ordered by MD. ms3 18:02 Discharged to home ambulatory. ll1 18:02 Condition: stable 18:02 Discharge instructions given to patient, Instructed on discharge instructions, follow up and referral plans. Demonstrated understanding of instructions, follow-up care. 18:03 Patient left the ED. ll1 Signatures: Dispatcher [employer] EDMS Adelina Garcia rg4 Anna Teran RN RN ap3 Diane Block ls3 Efraín Daniel RN RN ll1 Michael Vargas DO DO ms3 Lizbeth Preston RN RN ko1
[2022-10-18 19:05] VITALS: BP 130/85; TEMP 97.9; O2SAT 100
== END 2022-10-18 18:03 | disposition home or self-care (01) ==
LOC: ER 12:53
DX: K85.90 Acute pancreatitis without necrosis or infection, unspecified (principal); R11.2 Nausea with vomiting, unspecified; Z88.1 Allergy status to other antibiotic agents
CPT/HCPCS: 85025; 36415; 83690; 80053; 74177; 96375; 96374; 99284; Q9967; J2405; J7030